=== PATIENT | female | born 1990 | race Caucasian/White ===

== ENCOUNTER 2020-06-03 09:48 | Outpatient (REF) | payer MEDICAID, SELFPAY | END 2020-06-03 09:49 | disposition home or self-care (01) | LOC: HO.LAB 09:48 | PROVIDERS: Visit Provider Internal Medicine | DX: Z20.828 Contact with and (suspected) exposure to other viral communicable diseases (principal) | CPT/HCPCS: C9803; U0003 ==

== ENCOUNTER 2021-05-30 12:50 | Outpatient (REF) | payer MEDICAID, SELFPAY | END 2021-05-30 12:51 | disposition home or self-care (01) | LOC: HO.LAB 12:50 | PROVIDERS: Visit Provider Internal Medicine | DX: Z20.822 Contact with and (suspected) exposure to COVID-19 (principal) | CPT/HCPCS: C9803; U0003; U0005 ==

== ENCOUNTER 2021-07-11 13:19 | Outpatient (REF) | payer MEDICAID, SELFPAY | END 2021-07-11 13:20 | disposition home or self-care (01) | LOC: HO.LAB 13:19 | PROVIDERS: Visit Provider Internal Medicine | DX: Z20.822 Contact with and (suspected) exposure to COVID-19 (principal) | CPT/HCPCS: C9803; U0003; U0005 ==

== ENCOUNTER → 2023-08-21 11:35 | Outpatient (BNVA) | payer OTHER, SELFPAY | PROVIDERS: Visit Provider Physician Assistant | DX: S69.92XA Unspecified injury of left wrist, hand and finger(s), initial encounter (principal); X50.0XXA Overexertion from strenuous movement or load, initial encounter | CPT/HCPCS: 29125; 73110; 73130; 99203 ==

== ENCOUNTER → 2023-08-28 15:35 | Outpatient (BNVA) | payer OTHER, SELFPAY | PROVIDERS: Visit Provider Physician Assistant Medical | DX: M67.834 Other specified disorders of tendon, left wrist (principal); G56.02 Carpal tunnel syndrome, left upper limb | CPT/HCPCS: 99213 ==

== ENCOUNTER → 2023-09-06 14:54 | Outpatient (BNVA) | payer OTHER, SELFPAY | PROVIDERS: Visit Provider Physician Assistant | DX: M65.9 Synovitis and tenosynovitis, unspecified (principal) | CPT/HCPCS: 99202 ==

== ENCOUNTER 2023-10-02 13:31 | Outpatient (AMB) | payer OTHER, MEDICAID, SELFPAY ==
--- NOTE | 2023-10-02 13:39 | A.OFFVIS_ITS ---
Intake Vital Signs 10/02/23 13:45 Height 5 ft 2 in Weight 220 lb BMI 40.2 Intake Visit Reasons: OV - Left hand pain Intake Note: Tami a 33 year old right hand dominant female presents for a follow up of left hand. Patient reports that she continues to have pain that radiates into her elbow. States her pain comes with use of her hand. She continues to work with OT. 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 She states she has pain in her wrist which radiates up to her elbow. Her pain comes with use of her hand and she has been dropping stuff from her hand. She also c/o occasional numbness and tingling in her wrist. She continues to work with occupational therapy as instructed. [facility] Social History Patient Tobacco Use Status: Former Tobacco user Current occupational status: employed Current occupation: EMT-basic, right hand dominant Review of Systems Const All systems reviewed & are unremarkable except as noted in HPI and below Physical Exam Vital Signs: BMI result Body Mass Index 40.2 Const General: cooperative, healthy appearing, comfortable, no acute distress, well developed and alert Orientation/consciousness: patient oriented x3 HEENT Head: Yes normal to inspection, Yes normocephalic and Yes atraumatic Eyes General: appearance normal, both eyes and all related structures Resp Effort & Inspection: normal respiratory effort and able to speak in complete sentences Cardio Rate: regular rate Peripheral pulses: Peripheral pulses 2+ throughout GI Palpation (GI): Soft to palpation Skin Lesions: no lesions Rashes: no rashes Neuro General: patient oriented x3 Extrem Other: left wrist normal to inspection. She has pain along the FCU region of the forearm with wrist flexion. No pain along the scapholunate region. No pain with wrist compression or druj testing. Positive Tinel's. Assessment & Plan Assessment & Plan (1) FCU (flexor carpi ulnaris) tenosynovitis: Code(s): M65.9 - Synovitis and tenosynovitis, unspecified Plan We will obtain a authorization for the nerve conduction study of her LUE. She will remain out of work till I see her back. She will continue to work with occupational therapy as instructed as she has not fully accomplished full strength and her numbness / tingling is interfering with her ability to grasp objects. Orders: Orders NE electromyogram (EMG) 10/02/23 R20.0 - Anesthesia of skin, R20.2 - Paresthesia of skin NE nerve conduction velocity 10/02/23 R20.0 - Anesthesia of skin, R20.2 - Paresthesia of skin Patient Instructions: Scribed for Mary Lamb PA-C, by Nolberto Miramontes medical record librarians teacher, on 10/02/2023 at 1:30 PM EST. I, Mary Lamb PA-C, have personally reviewed and agree with the information entered by the scribe. Coding Level of Care Code Est Pt Level 3 (40738) Diagnoses FCU (flexor carpi ulnaris) tenosynovitis M65.9
[2023-10-02 13:45] VITALS: BMI 40.2
== END 2023-10-02 14:56 | disposition home or self-care (01) ==
LOC: HO.HOS 13:31
PROVIDERS: PCP Student in an Organized Health Care Education/Training Program; Visit Provider Physician Assistant
DX: M65.9 Synovitis and tenosynovitis, unspecified (principal)
CPT/HCPCS: 99213

== ENCOUNTER → 2023-10-02 13:31 | Outpatient (BNVA) | payer OTHER, MEDICAID, SELFPAY | PROVIDERS: PCP Student in an Organized Health Care Education/Training Program; Visit Provider Physician Assistant | DX: M65.9 Synovitis and tenosynovitis, unspecified (principal) | CPT/HCPCS: 99212 ==

== ENCOUNTER 2023-11-01 13:00 | Outpatient (RCR) | payer OTHER, MEDICAID, SELFPAY ==
--- NOTE | 2023-09-16 14:41 | MHC.OT.EP ---
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 SHE WAS SEEN AT WORK CONNECTION THE NEXT DAY THEN LATER REFERRED TO [facility] WHERE SHE WAS PLACED IN A WRIST SPLINT. SHE REPORTS SOME SLIGHT IMPROVEMENTS IN PAIN, YET CONT TO REPORT RADIATING PAIN FROM HER L VOLAR PALM TO HER UPPER FOREARM. IN ADDITION, SHE ALSO STATES NUMBNESS AND TINGLING IN HER POINTER AND LONG FINGERS. SHE REPORTS A 73% LIMITATION PER THE QUICK DASH ASSESSMENT. ONGOING SKILLED OT IS WARRANTED TO ADDRESS THE AREAS MENTIONED BELOW AND ASSIST WITH A SAFE RTW. Frequency and Duration: The patient will be seen 3X/WEEK FOR 5 WEEKS Short Term Goals: IND HEP IND JT PROTECTION AND ACTIVITY MODIFICATIONS REPORT MOSTLY PAINFREE AT REST TRIAL ALT SLEEPING POSITIONS TO REPORT <MIN DIFFICULTIES FUNCTIONAL COORDINATION PER FUNCTIONAL DEXTERITY TEST (<23 SECONDS) Group Home Goals: L GROSS GRASP >55 POUNDS QUICK DASH <40% DEMO PROPER BODY MECHANICS WITH FLOOR TO WAIST BOX LIFT OF >10 POUNDS TOLERATE SIMULATED WORK RELATED TASKS WITH <3/10 PAIN Treatment Plan: Therapeutic Exercise Therapeutic Activity Home Exercise Program Splinting Neuro Re-ed Patient Education Desensitization/Sensory Re-ed Edema Control ADL Training Ultrasound NMES Iontophoresis Paraffin Fluidotherapy MHP Cold Packs Joint Mobilization Soft Tissue Mobilization Kinesiotaping Other (see comments) Electronically Signed By: WANG SOUZA OTR/L Please Sign and return to therapist. Thank you once again for your referral.
--- NOTE | 2023-11-04 09:02 | MHC.OT.DC ---
[address] [phone] F: [phone] Occupational Therapy Discharge Note Patient Name: Tami Pinedo Provider: Mary Lamb Diagnosis: FCR TENOSYNOVITIS Date of Surgery: Date of Evaluation: 09/16/23 Date of Discharge: 11/01/23 Treatments to Date: 12 Cancellations to Date: 0 No Shows to Date: 1 Discharge Status: Achieved Goals Improved Function Independent with HEP Discharge Summary: MS PINEDO HAS PROGRESSED WELL WITH HER OT RX SESSIONS. SHE IS NOW PAINFREE AND HAS FUNCTIONAL ROM AND STRENGTH. SHE DEMO IND WITH HER HEP AND READY TO PROGRESS TO A HOME BASED PROGRAM. NO FURTHER SKILLED OT WARRANTED AT THIS TIME. Electronically Signed By: WANG SOUZA OTR/L Reviewed/agree with student documentation: N/A Therapist: Please Sign and return to therapist, thank you for your referral.
== END 2023-11-04 09:00 | disposition home or self-care (01) ==
LOC: HO.OT 13:00
PROVIDERS: PCP Student in an Organized Health Care Education/Training Program; Visit Provider Physician Assistant
DX: M65.9 Synovitis and tenosynovitis, unspecified (principal)
CPT/HCPCS: 29130; 97033; 97035; 97110; 97140; 97166; 97760

== ENCOUNTER → 2024-04-16 12:58 | Outpatient (BNVA) | payer OTHER, SELFPAY | PROVIDERS: PCP Student in an Organized Health Care Education/Training Program; Visit Provider Physician Assistant | DX: S39.011A Strain of muscle, fascia and tendon of abdomen, initial encounter (principal); S46.912A Strain of unspecified muscle, fascia and tendon at shoulder and upper arm level, left arm, initial encounter; X50.3XXA Overexertion from repetitive movements, initial encounter | CPT/HCPCS: 99203 ==

== ENCOUNTER → 2024-04-20 09:34 | Outpatient (BNVA) | payer OTHER, SELFPAY | PROVIDERS: PCP Student in an Organized Health Care Education/Training Program; Visit Provider Physician Assistant Medical | DX: S39.011A Strain of muscle, fascia and tendon of abdomen, initial encounter (principal); S46.912A Strain of unspecified muscle, fascia and tendon at shoulder and upper arm level, left arm, initial encounter; X50.3XXA Overexertion from repetitive movements, initial encounter | CPT/HCPCS: 99213 ==